=== PATIENT | female | born 1950 | race Caucasian/White ===

== ENCOUNTER → 2017-03-16 | Outpatient (CLI) | payer BC, MEDICARE ==
[~2017-03-16] MED LIST: ATV1 PO; CMD6 PO; COLE625T PO; FRRS300 PO; HMLI SC; INSDGI SC; LIDO5DIS10; LISI40TA PO; LSX20 PO; MCRKUNK; MRPSRUNK PO; OXYC-57 PO; SITA100T3 PO; SYMLIN SQ; [UNRECOGNIZED DRUG - CODE] PO; [UNRECOGNIZED DRUG - OTHER]
== END | disposition home or self-care (01) ==
LOC: C.RDSM 15:24
PROVIDERS: ATTEND Physical Medicine & Rehabilitation Sports Medicine
DX: M25.562 Pain in left knee (principal); Z96.652 Presence of left artificial knee joint

== ENCOUNTER → 2017-03-16 | Outpatient (CLI) | payer BC, MEDICARE | END | disposition home or self-care (01) | LOC: C.LAB1850 16:49 | PROVIDERS: ATTEND Physical Medicine & Rehabilitation Sports Medicine | DX: Z96.652 Presence of left artificial knee joint (principal) ==

== ENCOUNTER 2017-11-25 06:21 | Inpatient (IN) | payer BC, OTHER ==
[2017-10-30 11:45] VITALS: Ht 163.8 cm; Wt 86.5 kg
--- NOTE | 2017-10-30 12:24 | PAT Medication Instructions ---
Service Date Oct 30, 2017. Current Home Medication List Alpha-Lipoic Acid (Thioctic Ac (Alpha Lipoic Acid), 1 TAB PO BID Amlodipine Besylate (Amlodipine Besylate), 5 MG PO QAM Bisoprolol Fumarate (Zebeta), 5 MG PO QPM Calcium Carbonate (Tums), 1-2 TABS PO DAILY PRN for Heartburn Cholecalciferol (Vitamin D3), 1 TAB PO QAM Diphenhydramine Hcl (Benadryl Allergy), 1 TAB PO QAM Eszopiclone (Lunesta), 3 MG PO HS Fish Oil ([place] [address]-3), 1 CAP PO QAM Glimepiride (Amaryl), 0.5 MG PO QPM Lisinopril (Zestril), 40 MG PO QPM Lorazepam (Ativan), 1 MG PO Q6H PRN for Anxiety/Agitation Metformin Hcl (Glucophage), 1,000 MG PO QPM Oxycodone/Acetaminophen 10MG/325MG (Percocet 10MG/325MG), 1 TAB PO Q6 PRN for Pain Tramadol (Ultram), 1 TAB PO DAILY PRN for Pain [Vs-C], 1 CAP PO TID Medication Instructions For Your Scheduled Surgery - Hold the following medications 2 weeks prior to surgery: Fish Oil ([address]-3), 1 CAP PO QAM - Hold the following medications 24 hours prior to surgery: Lisinopril (Zestril), 40 MG PO QPM - Hold the following medications 48 hours prior to surgery: Metformin Hcl (Glucophage), 1,000 MG PO QPM - Hold the following medications the morning of surgery: Alpha-Lipoic Acid (Thioctic Ac (Alpha Lipoic Acid), 1 TAB PO BID Calcium Carbonate (Tums), 1-2 TABS PO DAILY PRN for Heartburn Cholecalciferol (Vitamin D3), 1 TAB PO QAM Diphenhydramine Hcl (Benadryl Allergy), 1 TAB PO QAM [Vs-C], 1 CAP PO TID - Take the following medications the morning of surgery with a sip of water: Oxycodone/Acetaminophen 10MG/325MG (Percocet 10MG/325MG), 1 TAB PO Q6 PRN for Pain (okay to take up to 4 hours prior to surgery if needed) Tramadol (Ultram), 1 TAB PO DAILY PRN for Pain (okay to take up to 4 hours prior to surgery if needed) Lorazepam (Ativan), 1 MG PO Q6H PRN for Anxiety/Agitation (if needed) Amlodipine Besylate (Amlodipine Besylate), 5 MG PO QAM - Take the following medications as scheduled the night before surgery: [Vs-C], 1 CAP PO TID Lorazepam (Ativan), 1 MG PO Q6H PRN for Anxiety/Agitation (if needed) Glimepiride (Amaryl), 0.5 MG PO QPM Eszopiclone (Lunesta), 3 MG PO HS Calcium Carbonate (Tums), 1-2 TABS PO DAILY PRN for Heartburn (if needed) Bisoprolol Fumarate (Zebeta), 5 MG PO QPM If you have any questions please call us at [phone] or [phone] or [phone]
--- NOTE | 2017-10-30 13:05 | DIAGNOSTIC IMAGING REPORT ---
CHEST 2 VIEWS ROUTINE HISTORY: 67 years-old Female PAT preoperative exam. No acute chest complaints. COMPARISON: Chest radiograph 02/04/2011 TECHNIQUE: PA and lateral views of the chest FINDINGS: Cardiac silhouette is within the upper limits of normal in size. Atherosclerosis of the aorta. No pneumothorax or pleural effusion. No lobar airspace consolidation to suggest pneumonia. Subtle ill-defined left basilar opacities suggest atelectasis or scarring. Mild chronic appearing interstitial opacities. Bones of the chest appear grossly intact. Surgical clips project over the epigastric region. Degenerative changes of the spine. IMPRESSION: 1. No acute process. 2. Mild chronic appearing bibasilar interstitial opacities. The above report was generated using voice recognition software. It may contain grammatical, syntax or spelling errors. Electronically signed by: Paul Mcmullen M.D. 10/30/2017 1:04 PM Dictated Date/Time: 10/30/2017 1:02 PM
[2017-10-30 13:17] LABS: BASO % 0.6 %; BASO ABS # 0.04 K/uL (0-0.2); EOS % 1.8 %; EOS ABS # 0.12 K/uL (0-0.5); HEMATOCRIT 38.8 % (37-47); IG# 0.01 K/uL (0.00-0.02); LYMPH % 35.4 %; LYMPH ABS # 2.41 K/uL (1.2-3.4); MEAN CELL VOLUME 88.4 fL (80-100); MEAN CORPUSCULAR HEMOGLOBIN 29.6 pg (25-34); MEAN CORPUSCULAR HGB CONC 33.5 g/dl (32-36); MEAN PLATELET VOLUME 8.9 fL (7.4-10.4); MONO % 5.6 %; MONO ABS # 0.38 K/uL (0.11-0.59); NEUT % 56.5 %; NEUT ABS # 3.84 K/uL (1.4-6.5); PLATELET COUNT 386 K/uL (130-400)
[2017-10-30 13:27] LABS: INR 0.9 (0.9-1.1)
[2017-10-30 13:47] LABS: CALCIUM 10.1 mg/dl (8.5-10.1); CREATININE 0.93 mg/dl (0.60-1.20)
--- NOTE | 2017-11-11 12:02 | HISTORY & PHYSICAL EXAMINATION ---
DATE OF ADMISSION: 11/25/2017 CHIEF COMPLAINT: Left knee pain. HISTORY OF PRESENT ILLNESS: This 67-year-old white female presented to the office with complaints of left knee pain that has been ongoing since 2012. She had a total knee arthroplasty done at that time. She has had continued pain in the left knee since then. She was seen at another orthopedic facility in August 2016 for an opinion. She elects to proceed with surgical intervention in hopes of alleviating her discomfort. The patient has difficulty with her ADLs. Pain is worse with weightbearing. She has obtained numerous blood draws for sed rate and C-reactive protein that remained low. X-rays and bone scan have been obtained. She elects to proceed with left total knee arthroplasty revision versus cement spacer placement on 11/25/2017. PAST MEDICAL HISTORY: Significant for angina, CHF, hypertension, elevated cholesterol, anxiety, type 1 diabetes, osteoarthritis, chronic back pain, obesity, history of gastric bypass, kidney stones, and history of chronic left knee pain. PREVIOUS SURGERIES: Left knee total knee replacement in 2012, gastric bypass in January 2013, heel spur removal in 1989, trigger finger release x5, cyst excision from her breast in 1989, carpal tunnel release, hysterectomy in 1994, x2, osteoid osteoma excision, heel hemangioma excision in 1961, and heart catheterization in 1999. SOCIAL HISTORY: The patient is retired. No tobacco use. No ETOH use. . FAMILY HISTORY: Noncontributory. ALLERGIES: KNOWN ALLERGY TO BRETHINE, LATEX, NOVOLOG, PENICILLIN, PREDNISONE, AND SULFA DRUGS. PENICILLIN CAUSES SIGNIFICANT URTICARIAL RASH. PREDNISONE CAUSES HER SIGNIFICANT MENTAL DISTRESS. SHE STATES SHE BECOMES VERY MEAN. NOVOLOG CAUSED A RASH HIVES. CURRENT MEDICATIONS: Percocet 10/325 mg 1 tablet p.o. q. 6 hours, Norvasc unknown dose daily, probiotic p.o. daily, Zebeta 5 mg daily, vitamin B12 of 1000 mcg daily, Benadryl 25 mg p.o. q. 6 hours, duloxetine 60 mg p.o. daily, Lunesta 3 mg p.o. daily, glimepiride 1 mg p.o. daily, lisinopril 40 mg p.o. daily, Ativan 1 mg p.o. q. 6 hours, metformin 1000 mg p.o. daily, fish oil daily, and tramadol 50 mg p.o. q. 6 hours p.r.n. REVIEW OF SYSTEMS: Significant for above stated conditions. Otherwise unremarkable. PHYSICAL EXAMINATION: GENERAL: Well-developed and well-nourished elderly white female in no acute distress. Sitting in a chair. Alert and oriented. SKIN: Warm and dry with fair turgor. No rashes or lesions. No ecchymosis or erythema. Well healed surgical scar on her left knee. HEENT: Normocephalic and atraumatic. Eyes: PERRLA and EOMI. Nares patent bilaterally without turbinate enlargement. Oropharynx is without erythema or exudate. No lesions noted. Uvula midline. Oral mucosa moist. Fair dentition. Missing several teeth. HEART: RRR. No MGR. LUNGS: Clear to auscultation bilaterally. No crackles, rhonchi or wheezing. Good air movement. ABDOMEN: Mildly obese. Bowel sounds present x4. Soft and nontender. No organomegaly. No masses. MUSCULOSKELETAL: Left knee has no intraarticular effusion. She has discomfort with palpation about the knee. She lacks about 10 degrees of terminal extension. Flexion to only around 80 degrees. Her worst pain is over the medial joint line. Stable collateral ligaments. No defect in the patellar tendon or quadriceps tendon. Ambulatory with a noticeable limp. NEUROLOGIC: Cranial nerves II through XII are intact. Gross sensation is intact across the upper and lower extremities by soft touch. Peripheral pulses are 2+. DATA: Radiographic imaging previously obtained show substantial osteolysis of the distal femur with over sizing of the femoral component. IMPRESSION: Septic versus aseptic loosening, left total knee arthroplasty. PLAN: Postoperative prescriptions for Percocet and Coumadin will be provided at discharge from the hospital. Anticipate discharge to home with 2 weeks of home health services and then outpatient PT. Preoperative lab work, EKG, and chest x-ray have been ordered. Medical clearance has been requested from her food safety auditor as well as her PCP. She did have a Lexiscan nuclear stress test performed that was negative on 10/08/2017. She already has a walker and cane. She will bring these on the day of surgery.
[2017-11-25] VITALS (8 sets, daily range): BP systolic 120–145; BP diastolic 63–73; PULSE 68–86; TEMP 36.4–37; O2SAT 96–100
[~2017-11-25] VITALS: Ht 163.8 cm; Wt 86.5 kg
[~2017-11-25 06:21] MED LIST changes: +ALPH600C2 PO; +ATV/1 PO; -ATV1 PO; +BISO5TAB3 PO; +CALC500C3 PO; +CEFAZOLIN 2000MG IV PUSH 15 ML IV SCH; +CHOL1TAB46 PO; -CMD6 PO; -COLE625T PO; +DIPH1TAB87 PO; +ESZO1TAB16 PO; -FRRS300 PO; +GLIM1TAB PO; -HMLI SC; -INSDGI SC; +LACTATED RINGER'S 1000ML 1,000 ML IV SCH; +LACTATED RINGER'S 1000ML 500 ML IV SCH; +LACTATED RINGER'S 1000ML IV SCH; -LIDO5DIS10; -LSX20 PO; -MCRKUNK; +METF-384 PO; -MRPSRUNK PO; +NRV5 PO; +OMEG10007 PO; +OXYC-106 PO; -OXYC-57 PO; +ROPIVACAINE 5MG/ML 30 ML 150 MG, BUPIVACAINE 0.5% MPF INJ 30 ML, EpINEphrine HCL INJ 0.... INFIL SCH; +ROPIVACAINE 5MG/ML 30 ML 150 MG, BUPIVACAINE/EPINEPHR 0.5% MPF 30 ML, KETOROLAC TROMETH... INFIL SCH; -SITA100T3 PO; -SYMLIN SQ; +TRAM-10 PO; +TRANEXAMIC ACID INJ 1,000 MG x 1 Bag Preop IV SCH; -[UNRECOGNIZED DRUG - CODE] PO; -[UNRECOGNIZED DRUG - OTHER]; +[UNRECOGNIZED DRUG - REMARK] PO
--- NOTE | 2017-11-25 06:31 | History & Physical Bridge Note ---
H&P Re-Evaluation Bridge Note: I have examined the patient, reviewed the History & Physical and in the interval since the performance of the History & Physical I have noted the following changes of clinical significance:consent obtained and identified the possibility of need for staging spacer if infection is even just suspected .No changes noted
[2017-11-25] MEDS ORDERED: EpHEDrine SULFATE INJ 50 MG/ML AMP IV PRN (07:30)
[2017-11-25] MEDS ORDERED: MEPERIDINE HCL 25 MG/ML CARP IV PRN (07:30)
[2017-11-25] MEDS ORDERED: ATROPINE SULFATE 0.1 MG/ML 5ML SYR IV PRN (07:30)
[2017-11-25] MEDS ORDERED: ONDANSETRON INJ 2 MG/ML 2 ML VIAL IV PRN ×2 (07:30→11:45)
[2017-11-25] MEDS ORDERED: LABETALOL HCL IV 5 MG/ML 20ML IV PRN (07:30)
[2017-11-25] MEDS ORDERED: BUPIVACAINE 0.5 % 5 MG/1 ML PF 10ML VIAL ONE (07:44)
[2017-11-25] MEDS ORDERED: BUPIVACAINE 0.25% 30 ML VIAL ONE (07:44)
[2017-11-25] MEDS ORDERED: PROPOFOL IV EMULSION 10 MG/ML 20 ML VIAL IV ONE (08:36)
[2017-11-25] MEDS ORDERED: LIDOCAINE HCL 2% 2 ML VIAL (20MG/ML) ONE (08:36)
[2017-11-25] MEDS ORDERED: FENTANYL CITRATE INJ 50 MCG/1 ML 2 ML VIAL ONE (08:36)
[2017-11-25] MEDS ORDERED: MIDAZOLAM HCL 1 MG/ML 2ML VIAL ONE ×2 (08:36→09:42)
[2017-11-25] MEDS ORDERED: ORTHO JOINT ANESTHETIC ONE (09:07)
[2017-11-25] MEDS ORDERED: VANCOMYCIN HCL 1000MG/20ML VIAL ONE ×2 (09:08→10:29)
[2017-11-25] MEDS ORDERED: GENTAMICIN SULFATE 40 MG/ML 2 ML VIAL ONE (09:08)
[2017-11-25] MEDS ORDERED: POVIDONE-IODINE OP SOLN 30 ML BTL ONE (09:08)
[2017-11-25] MEDS ORDERED: EpHEDrine SULFATE 50MG/5ML SYR ONE (10:48)
[2017-11-25] MEDS ORDERED: CEFAZOLIN SOD 1 GM VIAL ONE (10:58)
[2017-11-25] MEDS ORDERED: SODIUM CHLORIDE 0.9% INJ 10 ML VIAL ONE (10:58)
--- NOTE | 2017-11-25 11:28 | [facility] Post Operative Brief Note ---
Immediate Operative Summary Operative Date Nov 25, 2017. Pre-Operative Diagnosis Septic Versus Aseptic Loosening Left Total Knee Arthroplasty Post-Operative Diagnosis Ruling out Septic Left Total Knee with Placement of Cement Spacer Procedure(s) Performed Left Knee Placement of Cement Spacer and Application of Stimulan Beads Surgeon Dr. Saleem Resistance Welder Surgeon(s) Dr. Barnes/ EPI Walsh Estimated Blood Loss 150 ml Findings Consistent with Post-Op Diagnosis Fluids (cc crystalloids) 1100cc Specimens Frozen Section #1--Bone Cement Interface Left Femur--check for infection--sent to lab at 1010 Culture--Left Knee--Stat Gram Stain, routine culture and sensitivity, aerobes and anaerobes--sent to lab at 1010 Frozen Section #2--Bone Cement Interface Left Tibia--check for infection--sent to lab at 1024 Culture--Left Tibia--Stat Gram Stain, routine culture and sensitivity, aerobes and anaerobes--sent to lab at 1024 A. Removed Hardware Left Knee (tibial component, femoral component, poly and patella) Drains None Anesthesia Type MAC Spinal Regional Complication(s) none Disposition Accompanied Pt To Recover: no Disposition: Recovery Room / PACU
[2017-11-25] MEDS ORDERED: ACETAMINOPHEN IV 100 ML IV PRN (11:45)
[2017-11-25] MEDS ORDERED: CALCIUM CARBONATE 500 MG CHEWABLE PO PRN (11:45)
[2017-11-25] MEDS ORDERED: DiphenhydrAMINE HCL 50 MG/ML VIAL IV PRN (11:45)
[2017-11-25] MEDS ORDERED: ACETAMINOPHEN 325 MG TAB PO PRN (11:45)
[2017-11-25] MEDS ORDERED: MoRPHine SULFATE 2 MG/ML CARP IV PRN (11:45)
[2017-11-25] MEDS ORDERED: LORAZEPAM 1 MG TAB PO PRN (11:45)
[2017-11-25] MEDS ORDERED: MAGNESIUM HYDROXIDE SUSP 30 ML UDC PO PRN (11:45)
[2017-11-25] MEDS ORDERED: ALUMINUM/MAGNESIUM/SIMETH (MAALOX MAX) 30 ML UDC PO PRN (11:45)
[2017-11-25] MEDS: FENTANYL CITRATE INJ 50 MCG/1 ML 2 ML VIAL IV PRN ×8 (11:49→13:38)
--- NOTE | 2017-11-25 11:56 | OPERATIVE REPORT ---
DATE OF OPERATION: 11/25/2017 SURGEON: Dr. Gary Saleem. ADZING AND BORING MACHINE OPERATOR: Molly. SECOND ADZING AND BORING MACHINE OPERATOR: Becky THIRD ADZING AND BORING MACHINE OPERATOR: Jono Martinez student. PREOPERATIVE DIAGNOSES: Arthrofibrosis, left knee, possible sepsis versus aseptic loosening. POSTOPERATIVE DIAGNOSIS: Same. OPERATION PERFORMED: 1. Excisional arthroplasty with multiple frozen sections and insertion of a cement spacer with revision of patella with temporary polyethylene button. 2. Application of Stimulan beads. PERIOPERATIVE SITUATION: Medically cleared female with intractable knee pain really since the time of her original implant. She has developed significant arthrofibrosis. She has had sed rates and CRPs that have ever been alarmingly high, but high enough to be concerned about infection, particularly based on the fact she is diabetic and also has some arthrofibrosis. She was advised that we would proceed with this and be very cautious about doing an immediate exchange, based on her overall comorbidities. DESCRIPTION OF PROCEDURE: The patient appropriately identified, site verified, consent verified, 2 grams of Ancef confirmed as being given after the knee was kept to be aspirated with a dry aspirate. The leg was prepped and draped in usual routine fashion. The old incision was utilized and appropriate soft tissue flaps were raised. Parapatellar arthrotomy performed. There was a fair amount of synovial fluid. Once the joint was opened formally, there was hypertrophic thick synovium which was likely preventing the aspiration from being successful, particularly in light of the arthrofibrosis. Once the suprapatellar pouch was recreated, the patella was then slowly released along its adhesions from the internal mechanism and then the patella was able to be everted. All the synovium was then debrided. The knee was then flexed. The femur was definitely loose. There was a loosened area anteriorly that could be seen on x-ray as well. This was loosened up with an osteotome and then once the polyethylene spacer was removed, the femur was removed without difficulty. The membrane was then debrided and sent for frozen section and came back with a roughly 5 or less inflammatory cells per high power field, no bacteria were seen. Gram stain is pending. The tibia also had subsided indicating that it was getting loose and correlated with the bone scan; It should be mentioned the bone scan was hot in all 3 compartments. As a result , the tibia was then removed and all cement removed that membrane sent again that did not reveal anything that was no alarmingly suspicious for active acute infection but did not rule out chronic low-grade infection. This patella was then removed and the 3 peg holes were removed. It was then irrigated with Pulsavac. The cement spacers were then measured from the implants and once they were cured, a cement spacer was placed on the femur medial lateral 60, AP 43 and then also placed on the tibia which was 65. They were spot welded with cement and the patella was spot welded as well. It was a 32 polyethylene button that was new. Once this cured, the area was irrigated, the tourniquet was deflated prior to closing this, there was just bone oozing, no major arterial bleeding noted. The stimulon beads were placed and the wound closed with dissolvable suture to try to minimize risk for infection with #2 Vicryl. Subcutaneous layer was closed with 2-0 Vicryl and the skin with stainless steel clips. Estimated blood loss was roughly 125-150 mL. Crystalloid was 1000 mL. One bag of Palacos G cement with vancomycin added was placed, the Stimulan beads both vancomycin and gentamicin. At this point in time, suggest she get a PICC line, get an ID consult, get appropriate antibiotic treatment based on culture / will culture for propionibacterium acne as well and then ultimately revise her down the road roughly 10-12 weeks, if things look good. This was described to her in detail on multiple occasions including this morning. She understood. I attest to the content of the Intraoperative Record and any orders documented therein. Any exceptions are noted below. GABO
[2017-11-25] MEDS ORDERED: GLUCOSE 40% GEL 15 GM TUBE PO PRN (12:15)
[2017-11-25] MEDS ORDERED: GLUCAGON FOR INJ 1 MG VIAL SQ PRN (12:15)
[2017-11-25] MEDS ORDERED: GLUCOSE 10 TABS/TUBE PO PRN (12:15)
[2017-11-25] MEDS ORDERED: DEXTROSE 50% 50 ML SYR IV PRN (12:15)
[2017-11-25] MEDS: HYDROmorphone INJ 1 MG/ML SYR IV PRN ×6 (12:19→13:17)
[2017-11-25] MEDS ORDERED: HYDROmorphone INJ 2 MG/ML SYR/VIAL ONE (12:44)
--- NOTE | 2017-11-25 12:51 | DIAGNOSTIC IMAGING REPORT ---
L KNEE 1 OR 2 VIEWS ROUTINE CLINICAL HISTORY: Postoperative evaluation. COMPARISON: Left knee radiographs August 10, 2017. FINDINGS: These 2 images demonstrate removal of hardware with insertion of cement spacer and application of radiodense beads. There is no fracture. There are no unexpected radiopaque foreign bodies. IMPRESSION: Expected findings following hardware removal, insertion of cement spacer and application of radiodense beads. Electronically signed by: Dario Gamino M.D. 11/25/2017 12:50 PM Dictated Date/Time: 11/25/2017 12:49 PM
[2017-11-25] MEDS ORDERED: KETOROLAC TROMETHAMINE 30 MG/ML VIAL ONE (12:56)
[2017-11-25] MEDS ORDERED: NURSING VERBAL MED ORDER ONE ×2 (13:00→21:45)
--- NOTE | 2017-11-25 13:26 | PROGRESS NOTE ---
DATE: 11/25/2017 SUBJECTIVE: Status post excisional arthroplasty with cement spacer of a loose potentially infected total knee replacement on the left. The patient is having issues with pain management and is being adjusted as needed. She just received a dose of ketorolac. Vital signs are stable. She is afebrile. She is not tachycardic. Respiratory rate is actually not high either. Pulse ox is good. Postop x-rays reveal appropriate positioning of the cement spacer. There is no issue with any fracture noted. The Stimulan beads were also in place. Assessment of her neurovascular check reveals intact sciatic nerve function with active dorsi and plantar flexion of the toes and the ankle. Did not test quad function at this point in time secondary to pain. No major abroad dressing saturation. ASSESSMENT: Overall, doing reasonably well. Pain management is an issue, potentially could have some diabetic neuropathic pain. We will also order gabapentin. Will use smaller dose of Toradol based on renal function. Will use that for 24 hours.
[2017-11-25] MEDS ORDERED: ROPIVACAINE 0.5% 5 MG/ML 30 ML VIAL ONE (13:46)
--- NOTE | 2017-11-25 14:21 | Procedure Note ---
Procedure Note Procedure Date Nov 25, 2017. Procedure Description Procedure Name: left femoral nerve block Procedure time out: side/site verified, patient ID confirmed, correct procedure Consent obtained: written Performed by: attending Indications: therapeutic Contraindications: none Description: Left groin prepped with Chloroprep and draped sterile. Using ultasound, femoral nerve identified. Position confimed with PNS at 0.5 mV. Ropivicaine 0.5% 30cc injected incrementally after negative aspiration. Pt tolerated well. For observation in PACU prior to discharge. Complications: none Patient tolerated procedure: well Post-procedure vital signs: reviewed and stable Comments: Pt had left knee operated under spinal anesthesia and had adductor canal block for post op analgesia. In PACU, pt had recovery from spinal anesthesia and c/o severe pain. Despite administration of substantial doses of narcotic and ketorolac, pt continued to c/o 10/10 left knee pain. Discussed with surgeon and agreed to administer femoral nerve block in attempt to improve analgesia. Discussed with pt who expressed understanding and signed consent. Also discussed with pt's who expressed understanding and also signed consent.
--- NOTE | 2017-11-25 14:28 | Anesthesiology Progress Note ---
Anesthesia Post Op Note Date & Time Nov 25, 2017 at 14:25 Vital Signs Pain Intensity: 7 Vital Signs Past 12 Hours Date Time Temp Pulse Resp B/P (MAP) Pulse Ox O2 Delivery O2 Flow Rate FiO2 11/25/17 14:13 36.3 73 16 154/67 (102) 100 Nasal Cannula 2 11/25/17 14:12 144/64 11/25/17 14:09 73 15 11/25/17 14:09 75 15 100 11/25/17 14:06 159/68 11/25/17 14:04 71 13 11/25/17 14:04 72 13 100 11/25/17 14:01 158/74 11/25/17 13:59 73 14 11/25/17 13:59 74 14 100 11/25/17 13:56 152/68 11/25/17 13:54 78 19 11/25/17 13:54 79 19 100 11/25/17 13:51 163/71 11/25/17 13:49 72 15 100 11/25/17 13:49 73 15 11/25/17 13:47 158/55 11/25/17 13:46 71/64 11/25/17 13:44 77 13 100 11/25/17 13:44 76 13 11/25/17 13:41 157/78 11/25/17 13:39 75 12 99 11/25/17 13:39 75 12 11/25/17 13:36 166/68 11/25/17 13:34 71 12 99 11/25/17 13:34 72 12 11/25/17 13:32 174/61 11/25/17 13:29 74 16 11/25/17 13:29 75 16 99 11/25/17 13:26 132/99 11/25/17 13:24 74 14 11/25/17 13:24 72 14 98 11/25/17 13:23 156/52 11/25/17 13:21 173/73 11/25/17 13:19 68 12 99 11/25/17 13:19 70 12 11/25/17 13:18 150/62 11/25/17 13:14 74 23 11/25/17 13:14 75 23 100 11/25/17 13:11 144/120 11/25/17 13:09 80 16 99 2/21/18 13:09 78 16 2/21/18 13:06 174/86 2/21/18 13:04 69 13 96 2/21/18 13:04 71 13 2/21/18 13:01 157/61 2/21/18 12:59 76 17 99 2/21/18 12:59 76 17 2/21/18 12:56 153/62 2/21/18 12:54 73 16 2/21/18 12:54 71 16 98 2/21/18 12:52 155/67 2/21/18 12:49 72 17 2/21/18 12:49 74 17 99 2/21/18 12:46 129/70 2/21/18 12:44 64 13 2/21/18 12:44 65 13 99 2/21/18 12:41 135/81 2//18 12:39 67 15 98 2/21/18 12:39 67 15 2/21/18 12:36 145/66 2/21/18 12:34 60 15 123/70 98 2/21/18 12:34 63 15 2/21/18 12:33 /41 2/21/18 12:29 62 16 2/21/18 12:29 61 16 99 2/21/18 12:27 133/58 2/21/18 12:24 69 16 99 2/21/18 12:24 68 16 2/21/18 12:21 108/49 2//18 12:19 74 14 99 2/21/18 12:19 73 14 2/21/18 12:16 137/76 2/21/18 12:14 80 16 98 2/21/18 12:14 80 16 2/21/18 12:11 153/69 2/21/18 12:09 80 11 2/21/18 12:09 79 11 99 2/21/18 12:06 140/75 2/21/18 12:04 74 11 99 2/21/18 12:04 74 11 2/21/18 12:03 77 12 99 2/21/18 12:03 76 12 2/21/18 12:01 144/64 2/21/18 11:58 77 10 100 2/21/18 11:58 77 10 2/21/18 11:56 141/82 2/21/18 11:53 71 14 100 2/21/18 11:53 72 14 11/25/17 11:51 152/67 11/25/17 11:48 71 10 11/25/17 11:48 73 10 100 11/25/17 11:46 134/70 11/25/17 11:43 68 11 11/25/17 11:43 69 11 100 11/25/17 11:41 128/71 11/25/17 11:39 127/64 11/25/17 11:38 68 21 100 11/25/17 11:38 68 21 11/25/17 11:38 36.2 69 16 127/64 (95) 100 Nasal Cannula 2 11/25/17 07:24 36.8 75 20 120/73 97 Room Air Notes Mental Status: alert / awake / arousable, participated in evaluation Pt Amnestic to Procedure: Yes Nausea / Vomiting: adequately controlled Pain: adequately controlled Airway Patency, RR, SpO2: stable & adequate BP & HR: stable & adequate Hydration State: stable & adequate Neuraxial Anesthesia: was administered, sensory block is resolving Anesthetic Complications: no major complications apparent Pt had femoral nerve block in PACU for severe pain in spite of substantial narcotic dose. Has attained significant relief after block pain now "tolerable ". For discharge to med-surg unit.
--- NOTE | 2017-11-25 15:21 | Progress Note ---
Progress Note Date of Service Nov 25, 2017. Progress Note ID Consult Dictated #[id number] A/P: 1. Post op infection l knee -Will change to vanco pending OR cultures -will follow, thank you
[2017-11-25] MEDS ORDERED: VANCOMYCIN CONSULT ACTIVE PRN (15:30)
[2017-11-25] MEDS: SODIUM CHLORIDE 0.9% 1000ML 1,000 ML IV SCH ×2 (15:46→23:42)
[2017-11-25] MEDS ORDERED: INSULIN ASPART 100 UNITS/ML 3 ML PEN SC SCH (16:00)
--- NOTE | 2017-11-25 16:08 | Pharmacy Progress Note ---
Pharmacy Antibiotic Consult Date of Service: Nov 25, 2017. Pharmacy Dosing Scope Pharmacy is consulted to initiate Vancomycin IV dosing therapy, order appropriate labs and adjust drug dose/frequency. Subjective The patient is a 67 year old female admitted on Nov 25, 2017 at 06:40. Objective Height (Feet): 5 Height (Inches): 4.5 Weight (Kilograms): 86.500 Lab Results (24hrs): Test 11/25/17 06:54 11/25/17 11:48 11/25/17 12:24 Erythrocyte Sedimentation Rate 27 mm/hr (0-21) C-Reactive Protein 0.40 mg/dl (0-0.29) Bedside Glucose 95 mg/dl (70-90) 117 mg/dl (70-90) Assessment & Plan Assessment 67 year old female with history of knee arthroplasty in 2012, c/o chronic knee pain since. Underwent surgery today, cement spacer placed. Other pertinent PMH: Type I DM, CHF Pharmacy consulted by ID to dose Vancomycin for post-op bone/joint infection. Incision and tissue cultures pending. Estimated PK parameters based on labs from 10/30. Plan Vancomycin * Loading dose: 2000 mg (23 mg/kg) x 1 * Maintenance dose: 1250mg (15mg/kg) IV q 16 hours * Goal trough for bone/joint infections: 15-20 mcg/mL * Trough level ordered for 11/27 @1130 Pharmacy will continue to follow and will adjust dose/frequency as necessary. Thank you
[2017-11-25] MEDS ORDERED: VANCOMYCIN INJ 2,000 MG in SODIUM CHLORIDE 0.9% 500ML 500 ML IV ONE (16:30)
--- NOTE | 2017-11-25 16:45 | INFECT. DISEASE CONSULTATION ---
DATE OF CONSULTATION: 11/25/2017 HISTORY OF PRESENT ILLNESS: This is a 67-year-old female who was admitted to the hospital for an elective cement spacer. She did have a left knee replacement in 2012. She has had ongoing pain post-surgery. She states that she did have a fall fairly recently after her initial surgery and had wound dehiscence requiring 27 stitches. She did receive an empiric course of antibiotics at that time, but does not recall the name. There are no old cultures to suggest infection at that time. She continued to have worsening pain and difficulty with weightbearing. She has been following with orthopedics and the decision was made to undergo a cement placement. She has had borderline inflammatory marker elevation. Her CRP is mildly elevated at 0.4. She was admitted today and underwent surgery. There was some thick drainage noted at the time of surgery and 2 separate operative cultures were obtained. These are pending. Gram stain on #1 does show few gram positive cocci. The other Gram stain is unremarkable. Culture is pending. She has been afebrile. She denies any erythema or wound dehiscence since her original surgery. She denies any chest pain, cough, shortness of breath, nausea, vomiting or diarrhea. She has minimal pain in the knee, but this is tolerable. Her remaining review of systems is unremarkable. Her family is at the bedside at the time of my exam. PAST MEDICAL HISTORY: Significant for angina, CHF, hypertension, high cholesterol, anxiety, diabetes, osteoarthritis, chronic back pain, obesity, kidney stones and chronic left knee pain. PAST SURGICAL HISTORY: Significant for gastric bypass, left knee replacement in 2013, heel spur removal, trigger finger release on multiple occasions, breast cyst removal, carpal tunnel release, hysterectomy, , osteoma excision and heart catheterization. FAMILY HISTORY: Noncontributory. SOCIAL HISTORY: Negative for tobacco use, alcohol use or drug use. MEDICATIONS: Include metformin, Humalog, multivitamins, Protonix, Norvasc, Benadryl, Colace, Lunesta, lisinopril, Zebeta, Neurontin, Toradol, Ancef, iron, oxycodone, morphine, Tylenol, milk of magnesia, Maalox, Zofran, Tums, and Ativan. She did receive a 1 time dose of vancomycin. Fentanyl, Dilaudid, Demerol, Zofran, and labetalol. PHYSICAL EXAMINATION: VITAL SIGNS: She is afebrile, pulse 60, respiratory rate 18, blood pressure 139/63, and oxygen saturation is 100% on 2 liters nasal cannula. GENERAL: She is awake, alert and oriented x3. She is in no acute distress. HEENT: Mucous membranes are dry. Extraocular muscles are intact. HEART: Regular. LUNGS: Clear. ABDOMEN: Soft. EXTREMITIES: There is no right lower extremity edema. SKIN: Without rash. NEUROLOGIC: Postoperative dressing and brace are intact on the left leg. LABORATORY STUDIES: CBC was most recently done on the 30 of October. White blood cell count at that time was 6.8, hemoglobin was 13 and platelets were 386. Sed rate done today was 27. Most recent chemistry panel again was done on the 30 of October, sodium 136, potassium 5.0, chloride 104, bicarbonate 25, BUN 17, creatinine 0.9 and glucose was 143. CRP today was 0.4. A urinalysis on the was unremarkable. OR cultures are pending. ASSESSMENT AND PLAN: Septic arthritis of the left knee with postop infection. She will remain on antibiotics. I will transition her to vancomycin pending the results of her cultures. We will follow along with you. Thank you for this consultation.
[2017-11-25] MEDS ORDERED: WARFARIN SOD 5 MG TAB PO ONE (17:00)
--- NOTE | 2017-11-25 17:00 | Medical Consult ---
Consultation Date of Consultation: Nov 25, 2017. Attending Physician: Gary Saleem M.D. Reason for Consultation: Medical Management History of Present Illness 67 y/o F who was admitted earlier today s/p L knee replacement with Dr. Merrill. Pt is doing well post-op. She is quite nervous about the potential for pain moving forward, but no other concerns. She does have pain related to her L knee at present, but it is manageable for now. Pt denies fever , SOB, chest pain, abd pain, n/v/c/d, LE swelling. She has not eaten more than crackers yet and is hungry for dinner. Past Medical/Surgical History HTN Hyperlipidemia Angina DM OA Chronic back pain Anxiety CHF is listed as a dx, but pt states this was a single episode that occurred with PNA and she has had no recurrence, nor does she take any sort of diuretic Social History Smoking Status: Never Smoker Alcohol Use: rarely Drug Use: none Allergies Coded Allergies: Terbutaline (Verified Allergy, Severe, RXN = "CHEST PAIN, COULDN'T BREATHE ", 02/26/11) Adhesives (Verified Allergy, Mild, blisters, 11/25/17) Insulin Aspart (Verified Allergy, Unknown, RXN = "NAUSEA, HOT, HEADACHE", COULD THIS BE HYPOGLYCEMIA?, 02/26/11) Latex1 -Allergic Contact Dermititis (Verified Allergy, Unknown, itch, 10/30) Penicillins (Verified Allergy, Unknown, hives, 10/30/17) Prednisone (Verified Allergy, Unknown, grumpy, mental issues, 10/30/17) Sulfa Antibiotics (Verified Allergy, Unknown, HIVES, 11/25/17) Rosiglitazone (Verified Adverse Reaction, Unknown, doesn't remember, ) Sitagliptin (Verified Adverse Reaction, Unknown, heart issues, 10/30/17) Current Inpatient Medications Current Inpatient Medications Medications (Trade) Dose Ordered Sig/Robert Route Start Time Stop Time Status Last Admin Dose Admin Sodium Chloride 1,000 ml @ 100 mls/hr Q10H IV 11/25/17 11:40 11/26/17 11:39 11/25/17 15:46 100 MLS/HR Ketorolac Tromethamine (Toradol Inj) 15 mg Q6H IV. 11/25/17 19:00 11/26/17 11:44 Oxycodone HCl (Roxicodone Immediate Rel Tab) 1 TABLET FOR PAIN RATING... Q4H PRN PO 11/25/17 11:45 12/09/17 11:44 Morphine Sulfate (MoRPHine SULFATE INJ) 2 mg Q1H PRN IV 11/25/17 11:45 12/09/17 11:44 Acetaminophen (Tylenol Tab) 650 mg Q6H PRN PO 11/25/17 11:45 12/25/17 11:44 Magnesium Hydroxide (Milk Of Magnesia Susp) 30 ml Q6H PRN PO 11/25/17 11:45 12/25/17 11:44 Docusate Sodium (coLACE CAP) 100 mg BID PO 11/25/17 21:00 12/25/17 20:59 Diphenhydramine HCl (Benadryl Inj) 25 mg Q8H PRN IV 11/25/17 11:45 12/25/17 11:44 Al Hydrox/Mg Hydrox/Simethicone (Maalox Max Susp) 15 ml Q4H PRN PO 11/25/17 11:45 12/25/17 11:44 Multivitamins (Multivitamin Tab) 1 tab QAM PO 11/26/17 09:00 12/26/17 08:59 Ondansetron HCl (Zofran Inj) 4 mg Q6H PRN IV 11/25/17 11:45 12/25/17 11:44 Ferrous Gluconate (Ferrous Gluconate Tab) 324 mg TIDM PO 11/25/17 17:45 12/25/17 17:44 Pantoprazole Sodium (Protonix Tab) 40 mg QAM PO 11/26/17 09:00 11/29/17 09:01 Tranexamic Acid 1000 mg/Sodium Chloride 110 ml @ 660 mls/hr Q6H IV 11/25/17 18:00 11/25/17 18:09 Acetaminophen 100 ml @ 400 mls/hr Q8H PRN IV 11/25/17 11:45 12/25/17 11:44 Amlodipine Besylate (Norvasc Tab) 5 mg QAM PO 11/26/17 09:00 12/26/17 08:59 Calcium Carbonate (Tums Chew Tab) 500 mg DAILY PRN PO 11/25/17 11:45 12/25/17 11:44 Eszopiclone (Lunesta Tab) 3 mg HS PO 11/25/17 21:00 12/25/17 20:59 Lisinopril (Zestril Tab) 40 mg QPM PO 11/25/17 21:00 12/25/17 20:59 Lorazepam (Ativan Tab) 1 mg Q6H PRN PO 11/25/17 11:45 12/25/17 11:44 Miscellaneous Information (Order Awaiting Action) 1 ea QS N/A 11/25/17 16:00 12/25/17 15:59 Diphenhydramine HCl (Benadryl Cap) 25 mg QAM PO 11/26/17 09:00 12/26/17 08:59 Glucose (Glucose 40% Gel) 15-30 GRAMS 15 GRAMS... UD PRN PO 11/25/17 12:15 12/25/17 12:14 Glucose (Glucose Chew Tab) 4-8 Tablets 4 Tabl... UD PRN PO 11/25/17 12:15 12/25/17 12:14 Dextrose (Dextrose 50% 50ML Syringe) 25-50ML OF 50% DW IV FOR... UD PRN IV 11/25/17 12:15 12/25/17 12:14 Glucagon (Glucagon Inj) 1 mg UD PRN SQ 11/25/17 12:15 12/25/17 12:14 Insulin Human Lispro (humaLOG) SLIDING SCALE ACHS SC 11/25/17 16:00 11/26/17 14:00 Metformin HCl (Glucophage Extended Rel Tab) 1,000 mg QDD PO 11/26/17 17:45 12/26/17 17:59 Insulin Human Lispro (humaLOG) SLIDING SCALE ACHS SC 11/26/17 16:00 12/26/17 15:59 Gabapentin (Neurontin Cap) 400 mg BID PO 11/25/17 21:00 12/25/17 20:59 Ketorolac Tromethamine (Toradol Inj) 15 mg Q6H PRN IV 11/26/17 11:45 11/30/17 23:59 Morphine Sulfate (MoRPHine SULFATE INJ) 4 mg Q1H PRN IV 11/25/17 15:30 12/09/17 15:29 Vancomycin HCl 1250 mg/Sodium Chloride 275 ml @ 125 mls/hr Q16H IV 11/26/17 04:00 01/06/18 16:29 Miscellaneous Information (Consult) 1 ea UD PRN N/A 11/25/17 15:30 12/25/17 15:29 Vancomycin HCl 2000 mg/Sodium Chloride 540 ml @ 200 mls/hr TODAY@1630 ONCE IV 11/25/17 16:30 11/25/17 19:11 11/25/17 16:48 200 MLS/HR Warfarin Sodium (Coumadin Tab) 5 mg NOW ONCE PO 11/25/17 17:00 11/25/17 17:01 Review of Systems Pertinent positives and negatives reviewed in HPI--all others negative Physical Exam Date Time Temp Pulse Resp B/P (MAP) Pulse Ox O2 Delivery O2 Flow Rate FiO2 11/25/17 15:45 36.4 69 16 128/68 (88) 100 Room Air 11/25/17 15:15 36.4 75 16 137/70 (92) 96 Room Air 11/25/17 15:11 100 Room Air 11/25/17 14:48 100 Nasal Cannula 2.0 11/25/17 14:43 36.5 68 18 139/63 (88) 100 Nasal Cannula 2.0 11/25/17 14:13 36.3 73 16 154/67 (102) 100 Nasal Cannula 2 11/25/17 14:12 144/64 11/25/17 14:09 73 15 11/25/17 14:09 75 15 100 11/25/17 14:06 159/68 11/25/17 14:04 71 13 11/25/17 14:04 72 13 100 11/25/17 14:01 158/74 11/25/17 13:59 73 14 11/25/17 13:59 74 14 100 11/25/17 13:56 152/68 11/25/17 13:54 78 19 11/25/17 13:54 79 19 100 11/25/17 13:51 163/71 11/25/17 13:49 72 15 100 11/25/17 13:49 73 15 11/25/17 13:47 158/55 11/25/17 13:46 71/64 11/25/17 13:44 77 13 100 11/25/17 13:44 76 13 11/25/17 13:41 157/78 2/21/18 13:39 75 12 99 2/21/18 13:39 75 12 2/21/18 13:36 166/68 2/21/18 13:34 71 12 99 2/21/18 13:34 72 12 2/21/18 13:32 174/61 2/21/18 13:29 74 16 2/21/18 13:29 75 16 99 2/21/18 13:26 132/99 2/21/18 13:24 74 14 2/21/18 13:24 72 14 98 2/21/18 13:23 156/52 2/21/18 13:21 173/73 2/21/18 13:19 68 12 99 2/21/18 13:19 70 12 2/21/18 13:18 150/62 2/21/18 13:14 74 23 2/21/18 13:14 75 23 100 2/21/18 13:11 144/120 2/21/18 13:09 80 16 99 2/21/18 13:09 78 16 2/21/18 13:06 174/86 2/21/18 13:04 69 13 96 2/21/18 13:04 71 13 2/21/18 13:01 157/61 2/21/18 12:59 76 17 99 2/21/18 12:59 76 17 2/21/18 12:56 153/62 2/21/18 12:54 73 16 2/21/18 12:54 71 16 98 2/21/18 12:52 155/67 2/21/18 12:49 72 17 2/21/18 12:49 74 17 99 2/21/18 12:46 129/70 2/21/18 12:44 64 13 2/21/18 12:44 65 13 99 2/21/18 12:41 135/81 2/21/18 12:39 67 15 98 2/21/18 12:39 67 15 2/21/18 12:36 145/66 2/21/18 12:34 60 15 123/70 98 2/21/18 12:34 63 15 2/21/18 12:33 /41 2/21/18 12:29 62 16 2/21/18 12:29 61 16 99 2/21/18 12:27 133/58 2/21/18 12:24 69 16 99 2/21/18 12:24 68 16 11/25/17 12:21 108/49 11/25/17 12:19 74 14 99 11/25/17 12:19 73 14 11/25/17 12:16 137/76 11/25/17 12:14 80 16 98 11/25/17 12:14 80 16 11/25/17 12:11 153/69 11/25/17 12:09 80 11 11/25/17 12:09 79 11 99 11/25/17 12:06 140/75 11/25/17 12:04 74 11 99 11/25/17 12:04 74 11 11/25/17 12:03 77 12 99 11/25/17 12:03 76 12 11/25/17 12:01 144/64 11/25/17 11:58 77 10 100 11/25/17 11:58 77 10 11/25/17 11:56 141/82 11/25/17 11:53 71 14 100 11/25/17 11:53 72 14 11/25/17 11:51 152/67 11/25/17 11:48 71 10 11/25/17 11:48 73 10 100 11/25/17 11:46 134/70 11/25/17 11:43 68 11 11/25/17 11:43 69 11 100 11/25/17 11:41 128/71 11/25/17 11:39 127/64 11/25/17 11:38 68 21 100 11/25/17 11:38 68 21 11/25/17 11:38 36.2 69 16 127/64 (95) 100 Nasal Cannula 2 11/25/17 07:24 36.8 75 20 120/73 97 Room Air General Appearance: WD/WN, no apparent distress Head: normocephalic, atraumatic Eyes: normal inspection, sclerae normal Respiratory/Chest: normal breath sounds, no respiratory distress Cardiovascular: regular rate, rhythm, no edema Abdomen/GI: non tender, soft Extremities/Musculoskelatal: no calf tenderness, no pedal edema Neurologic/Psych: alert, normal mood/affect, oriented x 3 Skin: normal color, warm/dry Laboratory Results Last 24 Hours Test 11/25/17 06:54 11/25/17 11:48 2/21/18 12:24 Erythrocyte Sedimentation Rate 27 mm/hr C-Reactive Protein 0.40 mg/dl Bedside Glucose 95 mg/dl 117 mg/dl Assessment & Plan 67 y/o F who was admitted on 11/25 s/p L knee replacement with Dr. Merrill. L knee: as per ortho DVT proph, diet as per ortho Pre-op Hb is 13.0 HTN: stable, continue home meds DM: stable, continue home PO meds as long as pt is taking reliable PO Pt reports hx of insulin use, however she lost 100lbs s/p gastric bypass surgery and has been able to manage with PO medications CHF is listed as a dx, but pt states this was a single episode that occurred with PNA and she has had no recurrence, nor does she take any sort of diuretic
[2017-11-25] MEDS ORDERED: CEFAZOLIN IV 2,000 MG in SYRINGE 0 ML IV SCH (18:00)
[2017-11-25] MEDS ORDERED: TRANEXAMIC ACID INJ 1,000 MG in SODIUM CHLORIDE 0.9% 100ML 100 ML IV SCH (18:00)
[2017-11-25] MEDS: FERROUS GLUCONATE 324 MG TAB PO SCH (18:01)
[2017-11-25] MEDS: INSULIN HUMAN LISPRO (humaLOG) 100 UNITS/ML VIAL SC SCH ×2 (18:03→20:51)
[2017-11-25] MEDS: OXYCODONE HCL IR 5 MG TAB (IMMEDIATE RELEASE) PO PRN (18:08)
--- NOTE | 2017-11-25 18:10 | Orthopedic Progress Note ---
Orthopedic Progress Note Date of Service Nov 25, 2017. Subjective Additional Notes: Patient laying in bed eating dinner. Pain currently controlled. She received a post-op peripheral nerve block for operative leg. Denies any N/V/F/C and SOB/ BASS/CP Objective capillary refill less than 2 sec., dressing C/D/I, A&O x3, toes mobile Sensation to light touch sightly decreased over exposed areas of skin of the left foot. Date Time Temp Pulse Resp B/P (MAP) Pulse Ox O2 Delivery O2 Flow Rate FiO2 11/25/17 17:41 36.7 70 18 125/71 (89) 97 Room Air 11/25/17 15:45 36.4 69 16 128/68 (88) 100 Room Air 11/25/17 15:40 Room Air 11/25/17 15:15 36.4 75 16 137/70 (92) 96 Room Air 11/25/17 15:11 100 Room Air 11/25/17 14:48 100 Nasal Cannula 2.0 11/25/17 14:43 36.5 68 18 139/63 (88) 100 Nasal Cannula 2.0 11/25/17 14:13 36.3 73 16 154/67 (102) 100 Nasal Cannula 2 11/25/17 14:12 144/64 11/25/17 14:09 73 15 11/25/17 14:09 75 15 100 11/25/17 14:06 159/68 11/25/17 14:04 71 13 11/25/17 14:04 72 13 100 11/25/17 14:01 158/74 11/25/17 13:59 73 14 11/25/17 13:59 74 14 100 11/25/17 13:56 152/68 11/25/17 13:54 78 19 11/25/17 13:54 79 19 100 11/25/17 13:51 163/71 11/25/17 13:49 72 15 100 11/25/17 13:49 73 15 11/25/17 13:47 158/55 11/25/17 13:46 71/64 11/25/17 13:44 77 13 100 11/25/17 13:44 76 13 11/25/17 13:41 157/78 11/25/17 13:39 75 12 99 11/25/17 13:39 75 12 2/21/18 13:36 166/68 2/21/18 13:34 71 12 99 2/21/18 13:34 72 12 2/21/18 13:32 174/61 2/21/18 13:29 74 16 2/21/18 13:29 75 16 99 2/21/18 13:26 132/99 2/21/18 13:24 74 14 2/21/18 13:24 72 14 98 2/21/18 13:23 156/52 2/21/18 13:21 173/73 2/21/18 13:19 68 12 99 2/21/18 13:19 70 12 2/21/18 13:18 150/62 2/21/18 13:14 74 23 2/21/18 13:14 75 23 100 2/21/18 13:11 144/120 2/21/18 13:09 80 16 99 2/21/18 13:09 78 16 2/21/18 13:06 174/86 2//18 13:04 69 13 96 2//18 13:04 71 13 2//18 13:01 157/61 2/21/18 12:59 76 17 99 2/21/18 12:59 76 17 2/21/18 12:56 153/62 2/21/18 12:54 73 16 2/21/18 12:54 71 16 98 2/21/18 12:52 155/67 2/21/18 12:49 72 17 2/21/18 12:49 74 17 99 2/21/18 12:46 129/70 2/21/18 12:44 64 13 2/21/18 12:44 65 13 99 2/21/18 12:41 135/81 2/21/18 12:39 67 15 98 2/21/18 12:39 67 15 2/21/18 12:36 145/66 2/21/18 12:34 60 15 123/70 98 2/21/18 12:34 63 15 2/21/18 12:33 /41 2/21/18 12:29 62 16 2/21/18 12:29 61 16 99 2/21/18 12:27 133/58 2/21/18 12:24 69 16 99 2/21/18 12:24 68 16 2/21/18 12:21 108/49 2/21/18 12:19 74 14 99 11/25/17 12:19 73 14 11/25/17 12:16 137/76 11/25/17 12:14 80 16 98 11/25/17 12:14 80 16 11/25/17 12:11 153/69 11/25/17 12:09 80 11 11/25/17 12:09 79 11 99 11/25/17 12:06 140/75 11/25/17 12:04 74 11 99 11/25/17 12:04 74 11 11/25/17 12:03 77 12 99 11/25/17 12:03 76 12 11/25/17 12:01 144/64 11/25/17 11:58 77 10 100 11/25/17 11:58 77 10 11/25/17 11:56 141/82 11/25/17 11:53 71 14 100 11/25/17 11:53 72 14 11/25/17 11:51 152/67 11/25/17 11:48 71 10 11/25/17 11:48 73 10 100 11/25/17 11:46 134/70 11/25/17 11:43 68 11 11/25/17 11:43 69 11 100 11/25/17 11:41 128/71 11/25/17 11:39 127/64 11/25/17 11:38 68 21 100 11/25/17 11:38 68 21 11/25/17 11:38 36.2 69 16 127/64 (95) 100 Nasal Cannula 2 11/25/17 07:24 36.8 75 20 120/73 97 Room Air Assessment & Plan Assessment: POD # 0 s/p left total knee revision with staged removal of prior implants and placement of antibiotic spacer secondary to septic left total knee Plan: - multi-modal pain control - WBAT with walker and brace at all times - Change dressing one week post-op - infectious disease consult/PICC line - Coumadin for DVT prophylaxis - follow cultures - PT/OT
[2017-11-25] MEDS: KETOROLAC TROMETHAMINE 15 MG/ML VIAL IV. SCH (19:34)
[2017-11-25] MEDS: LISINOPRIL 40 MG TAB PO SCH (20:49)
[2017-11-25] MEDS: DOCUSATE SODIUM 100 MG CAP PO SCH (20:49)
[2017-11-25] MEDS: ESZOPICLONE 3 MG TAB PO SCH (20:49)
[2017-11-25] MEDS: GABAPENTIN 400 MG CAP PO SCH (20:49)
[2017-11-25] MEDS: MoRPHine SULFATE 4 MG/ML 1 ML CARP\\VIAL IV PRN ×2 (21:32→23:38)
[2017-11-26] MEDS: KETOROLAC TROMETHAMINE 15 MG/ML VIAL IV. SCH ×2 (00:51→06:24)
[2017-11-26] MEDS: VANCOMYCIN INJ 1,250 MG in SODIUM CHLORIDE 0.9% 250ML 250 ML IV SCH ×2 (03:50→22:01)
[2017-11-26] MEDS: MoRPHine SULFATE 4 MG/ML 1 ML CARP\\VIAL IV PRN (03:51)
[2017-11-26 05:43] LABS: HEMATOCRIT 27.9 % (37-47); HEMOGLOBIN 9.1 g/dL (12.0-16.0); MEAN CELL VOLUME 88.3 fL (80-100); MEAN CORPUSCULAR HEMOGLOBIN 28.8 pg (25-34); MEAN CORPUSCULAR HGB CONC 32.6 g/dl (32-36); MEAN PLATELET VOLUME 8.6 fL (7.4-10.4); PLATELET COUNT 191 K/uL (130-400); RED CELL DISTRIBUTION WIDTH CV 13.4 % (11.5-14.5); RED CELL DISTRIBUTION WIDTH SD 43.6 fL (36.4-46.3); WHITE BLOOD COUNT 7.68 K/uL (4.8-10.8)
[2017-11-26 06:13] LABS: CREATININE 0.95 mg/dl (0.60-1.20); POTASSIUM 4.4 mmol/L (3.5-5.1)
[2017-11-26] MEDS: OXYCODONE HCL IR 5 MG TAB (IMMEDIATE RELEASE) PO PRN ×5 (06:25→22:00)
[2017-11-26 07:03] VITALS: BP 125/71; PULSE 76; TEMP 36.9; O2SAT 96
--- NOTE | 2017-11-26 07:07 | PROGRESS NOTE ---
DATE: 11/26/2017 Postop day #1 status post removal of septic versus aseptic loosening and placement of cement spacer of left total knee replacement complicated with arthrofibrosis. At this point in time, the patient has had issues with pain management, the block is now worn off. Despite that fact, she is much more comfortable than she was yesterday. I saw her moving off the bedside commode and into the bed, was able to put some weight on her leg. Denies chest pain, shortness of breath, fever, chills, nausea, vomiting or headache. Vital signs are stable. She is afebrile. She is not overtly tachycardic. Belly soft, nontender. Wound dressing clean, dry and intact. Neurovascular check distally within normal limits. Hematocrit is 27.9. INR is 1.0. Chemistry is good. Glucoses are relatively well controlled with peak at 206, this morning she is 133. ASSESSMENT: Status post excisional arthroplasty with cement spacer, Stimulan beads, septic versus aseptic loosening of her left total knee replacement. Cultures are pending. Of note is that one Gram stain did have gram-positive cocci. Appreciate ID consult input. Antibiotics per their choice. PICC line likely. We will see how things move today. Potential discharge tomorrow. We will have social welfare research worker, PT/OT evaluate today. Coumadin for DVT prophylaxis per nomogram.
[2017-11-26] MEDS: SODIUM CHLORIDE 0.9% 1000ML 1,000 ML IV SCH (09:51)
[2017-11-26] MEDS: FERROUS GLUCONATE 324 MG TAB PO SCH ×3 (09:53→19:03)
[2017-11-26] MEDS: MULTIVITAMIN TAB PO SCH (09:53)
[2017-11-26] MEDS: AMLODIPINE BESYLATE 5 MG TAB PO SCH (09:53)
[2017-11-26] MEDS: DOCUSATE SODIUM 100 MG CAP PO SCH ×2 (09:53→22:01)
[2017-11-26] MEDS: GABAPENTIN 400 MG CAP PO SCH ×2 (09:54→22:01)
[2017-11-26] MEDS: PANTOprazole SOD 40 MG TAB PO SCH (09:55)
[2017-11-26] MEDS: INSULIN HUMAN LISPRO (humaLOG) 100 UNITS/ML VIAL SC SCH ×4 (10:02→22:06)
[2017-11-26 10:19] VITALS: BP 133/73; PULSE 83; O2SAT 97
--- NOTE | 2017-11-26 10:20 | Anesthesiology Progress Note ---
Anesthesia Post Op Note Date & Time Nov 26, 2017 at 10:20 Vital Signs Vital Signs Past 12 Hours Date Time Temp Pulse Resp B/P (MAP) Pulse Ox O2 Delivery O2 Flow Rate FiO2 11/26/17 07:20 Room Air 11/26/17 07:03 36.9 76 16 125/71 (89) 96 Room Air 11/25/17 23:47 Room Air 11/25/17 23:01 37.0 81 16 145/71 (95) 99 Room Air Notes Mental Status: alert / awake / arousable, participated in evaluation Pt Amnestic to Procedure: Yes Nausea / Vomiting: adequately controlled Pain: adequately controlled Airway Patency, RR, SpO2: stable & adequate BP & HR: stable & adequate Hydration State: stable & adequate Neuraxial Anesthesia: sensory block resolved Anesthetic Complications: no major complications apparent
[2017-11-26 11:23] VITALS: BP 152/79; PULSE 86; TEMP 37.2; O2SAT 100
[2017-11-26] MEDS: KETOROLAC TROMETHAMINE 15 MG/ML VIAL IV PRN (13:41)
--- NOTE | 2017-11-26 14:53 | Progress Note ---
Subjective Date of Service: Nov 26, 2017. Subjective OR cultures negative to date. tolerating vanco. 10/06 culture with gpc on gram stain. afebrile. pain controlled. Objective Vital Signs Date Time Temp Pulse Resp B/P (MAP) Pulse Ox O2 Delivery O2 Flow Rate FiO2 11/26/17 11:23 37.2 86 16 152/79 (103) 100 Room Air 11/26/17 10:19 83 97 11/26/17 07:20 Room Air 11/26/17 07:03 36.9 76 16 125/71 (89) 96 Room Air 11/25/17 23:47 Room Air 11/25/17 23:01 37.0 81 16 145/71 (95) 99 Room Air 11/25/17 19:05 36.7 86 16 135/65 (88) 99 Room Air 11/25/17 17:41 36.7 70 18 125/71 (89) 97 Room Air 11/25/17 15:45 36.4 69 16 128/68 (88) 100 Room Air 11/25/17 15:40 Room Air 11/25/17 15:15 36.4 75 16 137/70 (92) 96 Room Air 11/25/17 15:11 100 Room Air Laboratory Results Item Value Date Time Gram Stain - Final Resulted 11/25/17 1020 Tissue Leg Lower Left Gram Stain - Final Resulted 11/25/17 1008 Incision Site Knee Left Last 24 Hours Test 11/25/17 17:08 11/25/17 20:34 11/26/17 05:16 11/26/17 08:20 Bedside Glucose 206 mg/dl 172 mg/dl 141 mg/dl White Blood Count 7.68 K/uL Red Blood Count 3.16 M/uL Hemoglobin 9.1 g/dL Hematocrit 27.9 % Mean Corpuscular Volume 88.3 fL Mean Corpuscular Hemoglobin 28.8 pg Mean Corpuscular Hemoglobin Concent 32.6 g/dl RDW Standard Deviation 43.6 fL RDW Coefficient of Variation 13.4 % Platelet Count 191 K/uL Mean Platelet Volume 8.6 fL Prothrombin Time 10.2 SECONDS Prothromb Time International Ratio 1.0 Sodium Level 139 mmol/L Potassium Level 4.4 mmol/L Chloride Level 108 mmol/L Carbon Dioxide Level 24 mmol/L Anion Gap 7.0 mmol/L Blood Urea Nitrogen 15 mg/dl Creatinine 0.95 mg/dl Est Creatinine Clear Calc Drug Dose 60.1 ml/min Estimated GFR () 70.8 Estimated GFR (Non- 61.1 BUN/Creatinine Ratio 15.6 Random Glucose 133 mg/dl Calcium Level 8.0 mg/dl Test 11/26/17 12:02 Bedside Glucose 225 mg/dl Assessment and Plan (1) Loosening of knee joint prosthesis Assessment & Plan: ? Infection, cultures negative but gpc on gram stain. will follow.
[2017-11-26 15:00] VITALS: BP 129/70; PULSE 83; TEMP 37.1; O2SAT 98
[2017-11-26 15:30] VITALS: O2SAT 98
[2017-11-26] MEDS ORDERED: WARFARIN SOD 5 MG TAB PO SCH (16:00)
--- NOTE | 2017-11-26 17:40 | [facility] Operative Report ---
Operative Report Operative Date Nov 25, 2017. Pre-Operative Diagnosis Septic Versus Aseptic Loosening Left Total Knee Arthroplasty Post-Operative Diagnosis Ruling out Septic Left Total Knee with Placement of Cement Spacer Procedure(s) Performed Left Knee Placement of Cement Spacer and Application of Stimulan Beads Surgeon Dr. Saleem Cook Helper Vegetable Surgeon(s) Dr. Barnes/ EPI Lyons Estimated Blood Loss 150 ml Findings Left total knee arthroplasty loosening Fluids 1100cc Specimens Frozen Section #1--Bone Cement Interface Left Femur--check for infection--sent to lab at 1010 Culture--Left Knee--Stat Gram Stain, routine culture and sensitivity, aerobes and anaerobes--sent to lab at 1010 Frozen Section #2--Bone Cement Interface Left Tibia--check for infection--sent to lab at 1024 Culture--Left Tibia--Stat Gram Stain, routine culture and sensitivity, aerobes and anaerobes--sent to lab at 1024 A. Removed Hardware Left Knee (tibial component, femoral component, poly and patella) Drains None Anesthesia Type MAC Spinal Regional Complication(s) none Disposition no Recovery Room / PACU Indications This 67 year old white female presented to the office with complaints of left knee pain that was not responding to conservative measures. She previously had a total knee arthroplasty in 2012. She had tried oral pain medications, activity modification, and bracing without lasting relief. She elected to proceed with revision total joint replacement vs cement spacer placement after being educated about the risks and benefits. Preoperative imaging was obtained.Preoperative testing and joint aspiration was also obtained. Description of Procedure The patient was administered a spinal anesthetic and then taken to the operating room where she was given sedation. His prepped and draped in usual sterile fashion. Please see Dr. Saleem's operative report for specifics of the procedure. I was present for the entire case from initial patient positioning through final wound closure. Assistance was provided in tissue traction, hemostasis, hardware removal, cement spacer placement, and final wound closure. Patient was taken to the recovery room in satisfactory condition. I attest to the content of the Intraoperative Record and any orders documented therein. Any exceptions are noted below.
[2017-11-26] MEDS ORDERED: METFORMIN HCL 500 MG TABCR PO SCH (17:45)
--- NOTE | 2017-11-26 19:28 | Progress Note ---
Subjective Date of Service: Nov 26, 2017. Subjective Pt evaluation today including: conversation w/ patient, physical exam, chart review, lab review, review of studies (left knee procedure note), review of inpatient medication list Pain: left knee only PO Intake: had decent breakfast Voiding: no voiding problems just worked with PT and did fair no fevers feeling ok overall +flatus since the surgery Review of Systems Respiratory: No shortness of breath Cardiac: No chest pain Abdomen: No pain Objective Vital Signs Date Time Temp Pulse Resp B/P (MAP) Pulse Ox O2 Delivery O2 Flow Rate FiO2 11/26/17 15:30 98 Room Air 11/26/17 15:00 37.1 83 18 129/70 (89) 98 Room Air 11/26/17 11:23 37.2 86 16 152/79 (103) 100 Room Air 11/26/17 10:19 83 97 11/26/17 07:20 Room Air 11/26/17 07:03 36.9 76 16 125/71 (89) 96 Room Air 11/25/17 23:47 Room Air 11/25/17 23:01 37.0 81 16 145/71 (95) 99 Room Air Physical Exam General Appearance: no apparent distress, + obese ENT: pharynx normal Neck: no JVD Respiratory/Chest: lungs clear, no respiratory distress, no accessory muscle use Cardiovascular: regular rate, rhythm, no gallop, no murmur Abdomen: normal bowel sounds, non tender, soft, no organomegaly Extremities: + swelling (left leg down to the ankle/foot; large knee brace in place; LINDA wrap in place) Laboratory Results Last 24 Hours Test 11/25/17 20:34 11/26/17 05:16 11/26/17 08:20 11/26/17 12:02 Bedside Glucose 172 mg/dl 141 mg/dl 225 mg/dl White Blood Count 7.68 K/uL Red Blood Count 3.16 M/uL Hemoglobin 9.1 g/dL Hematocrit 27.9 % Mean Corpuscular Volume 88.3 fL Mean Corpuscular Hemoglobin 28.8 pg Mean Corpuscular Hemoglobin Concent 32.6 g/dl RDW Standard Deviation 43.6 fL RDW Coefficient of Variation 13.4 % Platelet Count 191 K/uL Mean Platelet Volume 8.6 fL Prothrombin Time 10.2 SECONDS Prothromb Time International Ratio 1.0 Sodium Level 139 mmol/L Potassium Level 4.4 mmol/L Chloride Level 108 mmol/L Carbon Dioxide Level 24 mmol/L Anion Gap 7.0 mmol/L Blood Urea Nitrogen 15 mg/dl Creatinine 0.95 mg/dl Est Creatinine Clear Calc Drug Dose 60.1 ml/min Estimated GFR () 70.8 Estimated GFR (Non- 61.1 BUN/Creatinine Ratio 15.6 Random Glucose 133 mg/dl Calcium Level 8.0 mg/dl Test 11/26/17 17:01 Bedside Glucose 115 mg/dl Assessment and Plan 67yo female, h/o left TKR, s/p placement of cement spacer and Stimulan beads due to arthrofibrosis and possible sepsis versus aseptic loosening. 1. HTN - controlled with LINDA & amlodipine. 2. T2DM - creatinine is stable; reasonable to continue metformin at home dose but would hold glimepiride. Novolog sliding scale with meals/hs. Add basal insulin if necessary. 3. h/o CHF - probably diastolic - was a one-time occurrence years ago; no exacerbations since. Follow. 4. acute blood loss anemia - agree with ferrous sulfate 325mg BID-TID. 5. ?angina (per the EMR) - no ischemic symptoms at this time. 6. ?septic left knee - ID involved, remains on IV vanco, follow cultures. 7. DVT proph - per orthopedics. Will continue to follow. Continued [facility] stay due to: multiple IV medications needed
[2017-11-26] MEDS: ESZOPICLONE 3 MG TAB PO SCH (22:00)
[2017-11-26] MEDS: LISINOPRIL 40 MG TAB PO SCH (22:01)
[2017-11-27] MEDS: KETOROLAC TROMETHAMINE 15 MG/ML VIAL IV PRN ×3 (00:04→16:21)
[2017-11-27] MEDS: OXYCODONE HCL IR 5 MG TAB (IMMEDIATE RELEASE) PO PRN ×2 (04:15→10:32)
--- NOTE | 2017-11-27 07:35 | PROGRESS NOTE ---
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 At this point in time, patient is well managed with her pain. She notes that she slept reasonably well. She denies any chest pain, shortness of breath, fever, chills, nausea, vomiting or headache. OBJECTIVE: Vital signs are stable. She is afebrile. Wound dressing clean, dry and intact. Neurovascular check femoral sciatic nerve is normal. Abdomen is soft, tender. Calves nontender. A.m. labs are pending. ASSESSMENT: Doing well. At this point in time, can be transferred. I discussed with Dr. Zamora. We will place her on vancomycin for 3 weeks. Obtain consent for PICC line. That will be put him this morning, she can then be transferred later today. Vancomycin dose per Dr. Zamora. Coumadin dose 4 mg per day if INR 1.5 or less and 2 mg a today if INR greater than 1.5, Keep INR 1.8-2.2. Keep present dressing in place until she returns for office visit. There is no range of motion of this knee. She can be weightbearing to tolerance with the brace on and with a walker. Any questions with the dressing being a problem, they need to call the office for patient visit.
--- NOTE | 2017-11-27 07:42 | DISCHARGE SUMMARY ---
CHIEF COMPLAINT: Left knee pain. HISTORY OF PRESENT ILLNESS: The patient is a 67-year-old female admitted for left knee surgery, had arthrofibrosis with potential septic versus aseptic loosening of her left total knee replacement. At this point in time, she had the knee replacement removed and it was filled with cement spacer and Stimulan beads. One of the gram stains had gram positive cocci and cultures are still pending. Pain was an issue for the first 24 hours but it now has resolved. At this point in time she is comfortable enough for transfer. She will be kept on IV antibiotics for 3 weeks or more pending culture assessment. She will be placed on vancomycin dosing ordered per Dr. Zamora. PAST MEDICAL HISTORY: Remarkable for angina, congestive heart failure, hypertension, elevated cholesterol, anxiety, type 1 diabetes, osteoarthritis, chronic back pain, obesity, history of gastric bypass, kidney stones, history of chronic left knee pain following her total knee replacement. PAST SURGICAL HISTORY: Include left total knee replacement in 2012, gastric bypass in 2012, heel spur 1989, trigger finger releases multiple times, breast cyst excision, carpal tunnel release, hysterectomy, , osteoid osteoma excision, heel hemangioma excision and heart catheterization. SOCIAL HISTORY: Reveals she is retired. No tobacco or alcohol use. She is . She has good social support from her daughter. FAMILY HISTORY: Noncontributory. ALLERGIES: INCLUDE BRETHINE, LATEX, NOVOLOG, PENICILLIN, PREDNISONE, SULFA DRUGS. PREADMISSION MEDICATIONS: Include Percocet, Norvasc, Zebeta, vitamin B12, Benadryl, duloxetine, Lunesta, glimepiride, lisinopril, Ativan, metformin, fish oil, tramadol. We will add Coumadin to keep INR 1.8-2.2. She also will have vancomycin IV per PICC line dosing per Dr. Zamora, infectious disease. REVIEW OF SYSTEMS: Reveals no chest pain, shortness of breath, fever, chills, nausea, vomiting, headache or rash. PHYSICAL EXAMINATION: Reveals calves to be nontender. Her abdomen, nontender. Neurovascular check both lower extremities within normal limits. Wound dressing clean, dry and intact. Brace in place. ASSESSMENT: Status post exchange arthroplasty with cement spacer and Stimulan beads. Culture is pending. Gram stain positive for gram positive cocci. At this point in time, she will be transferred to an SNF. Weightbearing as tolerated with brace on, dressing in place. Do not remove any of that. That will stay on permanently until she comes back to the office and she has a dressing change when lexa are removed. IV antibiotics per infectious disease, Dr. Zamora. She will be on vancomycin. Coumadin to keep INR 1.8-2.2. Resume all other medications as preop. Careful followup of diabetes. Follow up in the office in 2 weeks.
[2017-11-27 07:50] LABS: HEMATOCRIT 27.5 % (37-47); MEAN CELL VOLUME 87.9 fL (80-100); MEAN CORPUSCULAR HEMOGLOBIN 28.8 pg (25-34); MEAN CORPUSCULAR HGB CONC 32.7 g/dl (32-36); MEAN PLATELET VOLUME 8.6 fL (7.4-10.4); PLATELET COUNT 202 K/uL (130-400); RED CELL DISTRIBUTION WIDTH CV 13.7 % (11.5-14.5); RED CELL DISTRIBUTION WIDTH SD 43.8 fL (36.4-46.3); WHITE BLOOD COUNT 8.81 K/uL (4.8-10.8)
[2017-11-27 08:05] VITALS: BP 155/72; PULSE 83; TEMP 36.7; O2SAT 100
[2017-11-27 08:27] LABS: CALCIUM 8.6 mg/dl (8.5-10.1); CREATININE 0.93 mg/dl (0.60-1.20); POTASSIUM 4.3 mmol/L (3.5-5.1)
--- NOTE | 2017-11-27 08:47 | Orthopedic Progress Note ---
Orthopedic Progress Note Date of Service Nov 27, 2017. Subjective Post OP Day: 2 Reports: feeling well, pain controlled w PO medications, Denies: complaints, chest pain, SOB, nausea / vomiting, light headedness, calf pain, using EPIC CADENCE ANALYST Objective calves soft nontender, N/V intact, capillary refill less than 2 sec., dressing C /D/I, A&O x3, toes mobile, CMS intact Date Time Temp Pulse Resp B/P (MAP) Pulse Ox O2 Delivery O2 Flow Rate FiO2 11/27/17 08:05 36.7 83 16 155/72 (99) 100 Room Air 11/27/17 07:30 Room Air 11/27/17 00:00 Room Air 11/26/17 15:30 98 Room Air 11/26/17 15:00 37.1 83 18 129/70 (89) 98 Room Air 11/26/17 11:23 37.2 86 16 152/79 (103) 100 Room Air 11/26/17 10:19 83 97 Laboratory Results 24 Hours: Test 11/27/17 06:42 Hematocrit 27.5 % Hemoglobin 9.0 g/dL Prothromb Time International Ratio 1.0 Prothrombin Time 11.0 SECONDS Assessment & Plan Assessment: POD # 2 s/p left total knee revision with staged removal of prior implants and placement of antibiotic spacer secondary to septic left total knee Plan: - Cont PO pain control - WBAT with walker and brace at all times - Dressing to be kept in place until f/u at [facility] - infectious disease consult/PICC line (to be discharge on Vanco; dosage per ID) - Coumadin for DVT prophylaxis - follow cultures - PT/OT - Discharge to [facility] in [place] today (pending) (1) Loosening of knee joint prosthesis Discharge Planning Discharge Planning: alf facility Pain Management: Percocet DVT Prophylaxis: TEDs, Coumadin Therapy: Physical Therapy, Occupational Therapy
[2017-11-27] MEDS ORDERED: WARF2TAB PO (08:48)
[2017-11-27] MEDS ORDERED: OXYC-57 PO (08:48)
[2017-11-27] MEDS: INSULIN HUMAN LISPRO (humaLOG) 100 UNITS/ML VIAL SC SCH ×2 (09:28→12:47)
[2017-11-27] MEDS: FERROUS GLUCONATE 324 MG TAB PO SCH ×2 (10:23→12:49)
[2017-11-27] MEDS: PANTOprazole SOD 40 MG TAB PO SCH (10:23)
[2017-11-27] MEDS: MULTIVITAMIN TAB PO SCH (10:23)
[2017-11-27] MEDS: GABAPENTIN 400 MG CAP PO SCH (10:23)
[2017-11-27] MEDS: DOCUSATE SODIUM 100 MG CAP PO SCH (10:24)
[2017-11-27] MEDS: AMLODIPINE BESYLATE 5 MG TAB PO SCH (10:25)
--- NOTE | 2017-11-27 11:01 | Progress Note ---
Subjective Date of Service: Nov 27, 2017. Subjective Pt evaluation today including: conversation w/ patient, conversation w/ family , physical exam, chart review, lab review pt seen in followup, doing well. pain controlled. s/p picc line, remains on vanco. daughter at bedside. for d/c to rehab later today. Cultures negative to date, gram stain with gpc x 1. afebrile. no n/v/d. eating breakfast on my exam. tolerating vanco. all remaining ros reviewed and are negative. Objective Vital Signs Date Time Temp Pulse Resp B/P (MAP) Pulse Ox O2 Delivery O2 Flow Rate FiO2 11/27/17 08:05 36.7 83 16 155/72 (99) 100 Room Air 11/27/17 07:30 Room Air 11/27/17 00:00 Room Air 11/26/17 15:30 98 Room Air 11/26/17 15:00 37.1 83 18 129/70 (89) 98 Room Air 11/26/17 11:23 37.2 86 16 152/79 (103) 100 Room Air Physical Exam General Appearance: WD/WN, no apparent distress Eyes: normal inspection, EOMI Neck: supple Respiratory/Chest: lungs clear, normal breath sounds, no respiratory distress Cardiovascular: regular rate, rhythm, no edema Abdomen: soft Extremities: non-tender, no pedal edema Neurologic/Psychiatric: alert, oriented x 3 Skin: normal color Comments: lle dressing intact Laboratory Results Item Value Date Time Gram Stain - Final Resulted 11/25/17 1008 Incision Site Knee Left Gram Stain - Final Resulted 11/25/17 1020 Tissue Leg Lower Left Last 24 Hours Test 11/26/17 12:02 11/26/17 17:01 11/26/17 20:37 11/27/17 06:42 Bedside Glucose 225 mg/dl 115 mg/dl 188 mg/dl White Blood Count 8.81 K/uL Red Blood Count 3.13 M/uL Hemoglobin 9.0 g/dL Hematocrit 27.5 % Mean Corpuscular Volume 87.9 fL Mean Corpuscular Hemoglobin 28.8 pg Mean Corpuscular Hemoglobin Concent 32.7 g/dl RDW Standard Deviation 43.8 fL RDW Coefficient of Variation 13.7 % Platelet Count 202 K/uL Mean Platelet Volume 8.6 fL Prothrombin Time 11.0 SECONDS Prothromb Time International Ratio 1.0 Sodium Level 140 mmol/L Potassium Level 4.3 mmol/L Chloride Level 108 mmol/L Carbon Dioxide Level 26 mmol/L Anion Gap 5.0 mmol/L Blood Urea Nitrogen 14 mg/dl Creatinine 0.93 mg/dl Est Creatinine Clear Calc Drug Dose 61.4 ml/min Estimated GFR () 72.7 Estimated GFR (Non- 62.7 BUN/Creatinine Ratio 15.6 Random Glucose 127 mg/dl Calcium Level 8.6 mg/dl Test 11/27/17 08:28 Bedside Glucose 153 mg/dl Assessment and Plan (1) Loosening of knee joint prosthesis Assessment & Plan: long discussion with pt and daughter, with + gram stain showing gpc would prefer to give emperic course of abx and she plans to have another knee replacement surgery in the future. Cultures negative and inflamm markers only mildly elevated, they agree to proceed with abx. would give 21 days. will need weekly cbc,cmp,esr, vanco trough while on abx, maintain 15-20. She is concerned about oral/vaginal yeast infection and if needed, would suggest treatment with fluconazole 100mg po daily x 7 days if she develops. Can follow with ID post d/c. Continued [facility] stay due to: multiple IV medications needed
[2017-11-27] MEDS ORDERED: VANCOMYCIN TROUGH ONE (11:30)
[2017-11-27 11:40] VITALS: BP 135/66; PULSE 86; O2SAT 97
[2017-11-27] MEDS ORDERED: WARFARIN SOD 7.5 MG TAB PO STA (13:23)
[2017-11-27] MEDS: VANCOMYCIN INJ 1,250 MG in SODIUM CHLORIDE 0.9% 250ML 250 ML IV SCH (13:25)
[2017-11-27 14:50] VITALS: BP 135/66; PULSE 86; TEMP 36.7; O2SAT 97
--- NOTE | 2017-11-27 14:52 | Discharge Instructions ---
Discharge Instructions Date of Service Nov 27, 2017. Admission Reason for Admission: Aseptic Vs Septic Loosening Left Total Knee Arthro Discharge Discharge Diagnosis / Problem: Left knee s/p cement spacer placement and stimulan bead placement Discharge Goals Goal(s): Decrease discomfort, Improve disease control Activity Recommendations Activity Level: Up Ad Mitzy Therapies: Weight Bearing Status (as tolerated, must be in knee immobilizer) Weightbearing Status: Left weightbearing (as tolerated) Lifting Limitations: gradually increase as tolerated Exercise/Sports Limitations: until after follow-up appointment Shower/Bathe: keep incision dry . Additional Information Patient informed of condition: Yes Advance Directives: Yes DNR: No Level of Care: Skilled Communicable Disease: No Prognosis: Stable [place] Catheter: No Current Hospital Diet Patient's current hospital diet: Diabetes Type 2 Diet Discharge Diet Recommended Diet: Diabetes Type 2 Diet Procedures Procedures Performed: Left Knee Placement of Cement Spacer and Application of Stimulan Beads Pending Studies Studies pending at discharge: yes List of pending studies: tissue culture Physician Orders On Transfer Dressing Changes: None. Leave dressings in place. Please call office with any dressing issues IV Therapy: Vancomycin x 3 weeks, per Infectious Disease Vital Signs: per facility routine POLST Discussion: Not Applicable Medical Emergencies . Who to Call and When: Medical Emergencies: If at any time you feel your situation is an emergency, please call 911 immediately. . Non-Emergent Contact Non-Emergency issues call your: Primary Care Provider, Surgeon Call Non-Emergent contact if: temperature is above 101, wound has increased drainage, wound has increased pain, you have any medication questions . . "Provider Documentation" section prepared by Thomas Pena PA-C. . Core Measure Problem Core Measures: None [place] Drug Monitoring Program Search Results: no issues identified
--- NOTE | 2017-11-27 15:08 | Pharmacy Progress Note ---
Pharmacy Abx Dose Short Note Date of Service Nov 27, 2017. Assessment & Plan Assessment * 67 year old female receiving IV Vancomycin for treatment of post-op knee infection * Day #3 of antimicrobial therapy. * Vanc trough obtained today is therapeutic. No changes required at this time. Plan Vancomycin * Continue dose of Vancomycin 1250 mg IV every 16 hours * Goal trough level for SSTI: 15 to 20 mcg/mL * No further levels have been ordered at this time. If patient remains in hospital on vancomycin, will consider ordering repeat levels in a few days. Pharmacy will continue to follow and will adjust dose/frequency as necessary. Thank you.
--- NOTE | 2017-11-27 21:16 | Progress Note ---
Subjective Date of Service: Nov 27, 2017. Subjective Pt evaluation today including: conversation w/ patient, conversation w/ family (daughter at bedside), physical exam, chart review, lab review, review of inpatient medication list Pain: left knee - finally relieved with 10mg of oxy PO Intake: fair Voiding: no voiding problems during the visit the patient was quite sleepy she actually fell asleep at least twice while we were discussing her plan of care she blamed her sleepiness on poor rest last evening however, about 1 hour prior to my visit, she received benadryl with oxycodone she reported she does this combination of meds at home in fact she states she takes lunesta, benadryl, and oxycodone at bedtime regularly takes benadryl for gustatory rhinitis she otherwise denied dyspnea, abd pain or chest pain +flatus but no bowel movement; despite my urging she declined suppository Review of Systems Constitutional: No fever Cardiac: No chest pain Abdomen: + constipation Objective Vital Signs Date Time Temp Pulse Resp B/P (MAP) Pulse Ox O2 Delivery O2 Flow Rate FiO2 11/27/17 14:50 36.7 86 16 97 Room Air 11/27/17 11:40 86 16 135/66 (89) 97 Room Air 11/27/17 08:05 36.7 83 16 155/72 (99) 100 Room Air 11/27/17 07:30 Room Air 11/27/17 00:00 Room Air Physical Exam General Appearance: no apparent distress, + obese, + pertinent finding (sleepy) ENT: pharynx normal Neck: no JVD Respiratory/Chest: lungs clear, no respiratory distress, no accessory muscle use Cardiovascular: regular rate, rhythm, no gallop, no JVD, no murmur Abdomen: normal bowel sounds, non tender, soft, no organomegaly, + distended ( mild) Extremities: no pedal edema (right ankle), + pedal edema (left ankle) Neurologic/Psychiatric: + pertinent finding (sleepy and actually fell asleep but awakens and answers questions ) Laboratory Results Last 24 Hours Test 11/27/17 06:42 11/27/17 08:28 11/27/17 11:53 11/27/17 12:17 White Blood Count 8.81 K/uL Red Blood Count 3.13 M/uL Hemoglobin 9.0 g/dL Hematocrit 27.5 % Mean Corpuscular Volume 87.9 fL Mean Corpuscular Hemoglobin 28.8 pg Mean Corpuscular Hemoglobin Concent 32.7 g/dl RDW Standard Deviation 43.8 fL RDW Coefficient of Variation 13.7 % Platelet Count 202 K/uL Mean Platelet Volume 8.6 fL Prothrombin Time 11.0 SECONDS Prothromb Time International Ratio 1.0 Sodium Level 140 mmol/L Potassium Level 4.3 mmol/L Chloride Level 108 mmol/L Carbon Dioxide Level 26 mmol/L Anion Gap 5.0 mmol/L Blood Urea Nitrogen 14 mg/dl Creatinine 0.93 mg/dl Est Creatinine Clear Calc Drug Dose 61.4 ml/min Estimated GFR () 72.7 Estimated GFR (Non- 62.7 BUN/Creatinine Ratio 15.6 Random Glucose 127 mg/dl Calcium Level 8.6 mg/dl Bedside Glucose 153 mg/dl 228 mg/dl Vancomycin Level Trough 16.5 mcg/ml Test 11/27/17 16:48 Bedside Glucose 159 mg/dl Assessment and Plan 67yo female, h/o left TKR, s/p placement of cement spacer and Stimulan beads due to arthrofibrosis and possible sepsis versus aseptic loosening. 1. HTN - controlled with LINDA & amlodipine. Cont both at d/c. 2. T2DM - reasonable control in light of perioperative stress. Continue outpatient regimen at d/c. 3. h/o CHF - probably diastolic - was a one-time occurrence years ago; no exacerbations since. Compensated. 4. acute blood loss anemia - agree with ferrous sulfate 325mg BID-TID. would d /c her on this for 1-2 months. 5. ?angina (per the EMR) - no ischemic symptoms at this time. 6. ?septic left knee - ID involved, remains on IV vanco. ID recommending course of IV vanco via LUE PICC at discharge. 7. DVT proph - per orthopedics. 8. sleepiness - I believe this was from polypharmacy (benadryl, oxycodone, etc) . I had a lengthy discussion with her and her daughter about the risks of polypharmacy. I recommended astepro (or astelin) in traci of benadryl for her gustatory rhinitis. I also recommended a lower dose of oxycodone. After seeing the patient I voiced my concerns to the nursing staff as well as the piano case maker about her sleepiness. I told them that I felt this was from her medications and that she needs careful monitoring of her mental status. Discharge later today would only be reasonable if, after the effects of the medication had worn off, she was at mental status baseline. Orthopedic attending to be made aware of the above. 9. constipation - recommended dulcolax suppos but she declined. Passing flatus and having no nausea; thus, ileus unlikely. Discharge planning: [facility] facility
== END 2017-11-27 17:10 | DRG 464 ==
LOC: C.ACU 06:21 → C.3E 06:40 → ENRESERV 13:24 → CANRESERV 13:24 → ENRESERV 14:15
PROVIDERS: ADMIT Physical Medicine & Rehabilitation Sports Medicine; ATTEND Physical Medicine & Rehabilitation Sports Medicine
PROC: 3E0102A Introduction of Anti-Infective Envelope into Subcutaneous Tissue, Open Approach (ICD-10-PCS; principal; 2017-11-25 09:30)
PROC: 0SHD08Z Insertion of Spacer into Left Knee Joint, Open Approach (ICD-10-PCS; principal; 2017-11-25 09:30)
PROC: 0SPD0JZ Removal of Synthetic Substitute from Left Knee Joint, Open Approach (ICD-10-PCS; principal; 2017-11-25 09:30)
PROC: 02HV33Z Insertion of Infusion Device into Superior Vena Cava, Percutaneous Approach (ICD-10-PCS; 2017-11-27)
DX: T84.54XA Infection and inflammatory reaction due to internal left knee prosthesis, initial encounter (principal); D62 Acute posthemorrhagic anemia; M24.662 Ankylosis, left knee; I10 Essential (primary) hypertension; E11.9 Type 2 diabetes mellitus without complications; F41.9 Anxiety disorder, unspecified; E78.00 Pure hypercholesterolemia, unspecified; K59.00 Constipation, unspecified; E66.9 Obesity, unspecified; Z79.84 Long term (current) use of oral hypoglycemic drugs; Z79.899 Other long term (current) drug therapy; Y79.2 Prosthetic and other implants, materials and accessory orthopedic devices associated with adverse incidents; Y83.1 Surgical operation with implant of artificial internal device as the cause of abnormal reaction of the patient, or of later complication, without mention of misadventure at the time of the procedure; Z98.84 Bariatric surgery status; Z88.0 Allergy status to penicillin; Z88.2 Allergy status to sulfonamides; Z91.040 Latex allergy status; Z88.8 Allergy status to other drugs, medicaments and biological substances; Z96.652 Presence of left artificial knee joint; Z68.32 Body mass index [BMI] 32.0-32.9, adult

== ENCOUNTER → 2017-12-24 | Outpatient (CLI) | payer BC, OTHER ==
[~2017-12-24] MED LIST changes: -CEFAZOLIN 2000MG IV PUSH 15 ML IV SCH; -LACTATED RINGER'S 1000ML 1,000 ML IV SCH; -LACTATED RINGER'S 1000ML 500 ML IV SCH; -LACTATED RINGER'S 1000ML IV SCH; -OMEG10007 PO; -OXYC-106 PO; +OXYC-57 PO; -ROPIVACAINE 5MG/ML 30 ML 150 MG, BUPIVACAINE 0.5% MPF INJ 30 ML, EpINEphrine HCL INJ 0.... INFIL SCH; -ROPIVACAINE 5MG/ML 30 ML 150 MG, BUPIVACAINE/EPINEPHR 0.5% MPF 30 ML, KETOROLAC TROMETH... INFIL SCH; -TRAM-10 PO; -TRANEXAMIC ACID INJ 1,000 MG x 1 Bag Preop IV SCH; +WARF2TAB PO
== END | disposition home or self-care (01) ==
LOC: C.RDSM 14:39
PROVIDERS: ATTEND Physical Medicine & Rehabilitation Sports Medicine
DX: R52 Pain, unspecified (principal)

== ENCOUNTER → 2018-05-10 | Outpatient (CLI) | payer BC ==
[~2018-05-10] MED LIST changes: -[UNRECOGNIZED DRUG - REMARK] PO
== END | disposition home or self-care (01) ==
LOC: C.RDSM 10:09
PROVIDERS: ATTEND Physical Medicine & Rehabilitation Sports Medicine
DX: Z96.652 Presence of left artificial knee joint (principal)